=== PATIENT | male | born 2005 | race Caucasian/White ===

== ENCOUNTER 2024-10-03 14:22 | Emergency (ER) | payer OTHER, SELFPAY ==
[2024-10-03 15:12] VITALS: BP 138/87; PULSE 91; RESP 17; TEMP 36.5; O2SAT 99; BMI 24.7
--- NOTE | 2024-10-03 17:02 | ED_ITS ---
HPI - Psych General Chief Complaint: Psychiatric Symptoms Stated Complaint: mental health struggles Time Seen by Provider: 10/03/24 17:02 Source: patient and family Mode of arrival: Ambulatory History of Present Illness HPI Narrative: Mr. Bonilla is a very pleasant 19-year-old male with a past medical history of depression, anxiety, ADHD who presents to the emergency department with his girlfriend for concerns of worsening depression and hoping to get started back on his medications. Patient was previously on desvenlafaxine 50 mg and hydroxyzine 10 mg as needed however he stopped taking these few months ago because of his ADHD which causes him to struggle remembering to take medications. States that he is currently in college in [place] and missed school this last week because he was feeling extremely depressed and anxious. Brionna villalpando admits that he did have thoughts of wanting to this last week but that he has no current suicidal ideations and has no plan. He has no homicidal ideations. The more school he missed the more depressed he gets. His brother did commit suicide in 2019 and the date is approaching which often worsens his depression. He is here with his girlfriend who he states is a big support for him. His parents also live in [place]. Related Data Previous Rx's Medication Instructions Recorded desvenlafaxine succinate 50 mg 50 mg PO DAILY #30 tabs 07/14/23 tablet,extended release 24 hr hydroxyzine HCl 10 mg tablet 10 mg PO BID PRN anxiety #60 tabs 07/14/23 ketoconazole 2 % shampoo 1 applic topical 2XW #120 mL 07/14/23 desvenlafaxine succinate 50 mg 50 mg PO DAILY #30 tabs 10/03/24 tablet,extended release 24 hr hydroxyzine HCl 10 mg tablet 10 mg PO TID PRN anxiety #30 tabs 10/03/24 Allergies Allergy/AdvReac Type Severity Reaction Status Date / Time No Known Drug Allergies Allergy Verified 10/03/24 15:12 Review of Systems Review of Systems ROS Unobtainable: All systems reviewed & are unremarkable except as noted in HPI and below Patient History Social History Smoking Status: Never smoker alcohol intake: current (Binge 2x month) substance use type: marijuana (Daily) Smoking Status: Never smoker Exam Narrative Exam Narrative: GENERAL: 19 year old patient appears stated age. Well-developed patient, in no acute distress. HEAD: Atraumatic. Normocephalic. EYES: Extraocular motions intact. No scleral icterus. No injection or drainage. NECK: Trachea midline. Cervical ROM intact. CARDIOVASCULAR: Regular rate and rhythm. RESPIRATORY: ?Nonlabored respirations. ?Speaking in clear, full sentences. ?Clear to auscultation. Breath sounds equal bilaterally. No wheezes, rales, or rhonchi. ? NEURO: AOx3. ?Clear speech. ?Moves all 4 extremities appropriately. Good insight and judgment. No SI or HI. SKIN: No rash or erythema of visible areas Initial Vital Signs Initial Vital Signs: Vital Signs Temperature 97.7 F 10/03/24 15:12 Pulse Rate 91 H 10/03/24 15:12 Respiratory Rate 17 10/03/24 15:12 Blood Pressure 138/87 10/03/24 15:12 Pulse Oximetry 99 10/03/24 15:12 Oxygen Delivery Method Room Air 10/03/24 15:12 Course Orders Ordered: ED Orders 10/03/24 15:27 Consult to OPTIMIZATION ANALYST - Barrel Rifler Broach Stat Vital Signs Vital signs: Vital Signs - 8 hr 10/03/24 15:12 10/03/24 19:10 Temperature 97.7 F 98 F Pulse Rate 91 H 80 Respiratory Rate 17 18 Blood Pressure 138/87 Pulse Oximetry 99 98 Oxygen Delivery Method Room Air Room Air MDM - Psych MDM Narrative Medical decision making narrative: 19-year-old male with a past medical history of depression, anxiety, ADHD who presents to the emergency department with his girlfriend for concerns of worsening depression and hoping to get started back on his medications. Differential diagnosis includes but isn't limited to depression, anxiety, SI, ADHD, medication refill, etc. On exam the patient is in no acute distress, nontoxic appearing, vital signs within normal limits, good insight and judgment, no active SI or HI. Patient has a long history of struggling with mental health but has been off his medication for some time, he attributes this to his uncontrolled ADHD however he has never been formally prescribed medication for his ADHD. He has taken a family member's Adderall in the past and felt very well controlled on this medication. He is hoping to be started on medications today at this ED visit. We did discuss the limitations of the emergency department and that I am unable to follow up with him on long-term medications. Because there is documentation of him being on hydroxyzine and desvenlafaxine in the past, and patient reports these medications worked well for him, I will refill them at this time. I had an extensive discussion with the patient that he very well may benefit from voluntary inpatient psychiatric treatment, however is not interested in this at this time as he is very hopeful to get back to college. I do not believe this patient requires involuntary psychiatric admission, is not currently harm to himself, and has good support system and safety resources. OPTIMIZATION ANALYST met with the patient and he was very happy with the multiple resources she was able to provide him. At this time he states that on Wednesdays and Fridays he would be able to go to doctor's appointments without missing school. Discussed strict ED return precautions with the patient. Both the patient and his partner Gypsy verbalized understanding all of the information. He is agreeable to the plan and stable for discharge home. Discharge Plan Departure Patient Disposition: Home Clinical Impression: Major depression, recurrent Qualifiers: Active/Remission status: currently active Major depression episode severity: unspecified Qualified Code(s): F33.9 - Major depressive disorder, recurrent, unspecified Instructions: DI for Suicidal Ideation-Adult Activity Restrictions/Additional Instructions: Dear Mr. Bonilla. Thank you for coming to the emergency department. Today you were evaluated for worsening symptoms of depression anxiety and ADHD. We have started you back on your prior anxiety and antidepressant medications, however these are medications that require close follow up so it is extremely important that you follow up with your primary care doctor and a psychiatrist for further management. You will need to see a psychiatrist help prescribed medications for ADHD. If you develop any thoughts of harming herself or others, call 911, suicide crisis line, or return to the emergency department immediately. Please return to the emergency department with any concerns. Please follow up with your primary care doctor within the next 2-3 days for ER follow-up. (If you do not have a PCP you can call [phone]. ?to schedule an appointment with an [facility] Primary Care Provider) IF YOU DEVELOP ANY NEW OR WORSENING SYMPTOMS, RETURN TO THE ER! Please read the attached instructions, they highlight more specific treatments and interventions for you at home. Thank you for letting me participate in your care, Winter Cantor PA-C Prescriptions: New desvenlafaxine succinate 50 mg tablet extended release 24 hr 50 mg PO DAILY Qty: 30 1RF hydroxyzine HCl 10 mg tablet 10 mg PO TID PRN (Reason: anxiety) Qty: 30 0RF No Action desvenlafaxine succinate 50 mg tablet extended release 24 hr 50 mg PO DAILY Qty: 30 2RF hydroxyzine HCl 10 mg tablet 10 mg PO BID PRN (Reason: anxiety) Qty: 60 0RF ketoconazole 2 % shampoo 1 applic topical 2XW Qty: 120 2RF Rx Instructions: Apply to scalp for 5 minutes before rinsing Referrals: Beronica Day DO [Primary Care Provider] - Stand Alone Forms: Patient Portal/API/Survey, School Release Note
--- NOTE | 2024-10-03 18:26 | CM.SWNOTE ---
ED UNIT AIDE Assessment Note: ED UNIT AIDE deployed ALLEGRA-7 and PHQ-9 and patient scored a 15 and 25, respectively, indicating severe anxiety and depression. UNIT AIDE - Cutter Inspector Assessment UNIT AIDE - Cutter Inspector Assessment Start: 10/03/24 17:42 Freq: Status: Active Protocol: Document 10/03/24 17:42 MW (Rec: 10/03/24 18:26 MW [id number]) UNIT AIDE/Cutter Inspector Assessment Time Spent with Patient Start date 10/03/24 Visit Start Time 16:30 End date 10/03/24 Visit End Time 15:00 Total time Care Management spent on 30 minutes patient visit-in minutes Mental Health Screening Include Onset, Duration, Intensity Presenting Problem Patient presented to the ED with his partner with concerns of his mental health and requesting a medication refill. Patient was previously prescribed desvenlafaxine and hydroxyzine by his PCP in 2022, he has not been medicated since. Patient recognzies he needs assistance with this; previous MH dx of anxiety, depression and ADHD. Precipitating Event(s) Patient states he has been frozen for the past week, executive dysfunction and having a hard time fulfilling ADLs. Patient explains his family encouraged him to get help. Patient stopped seeing his MH therapist in May 2023 due to school schedule. Patient Strengths Patient is supported by his partner, Gypsy, who is at bedside with him today. Current Behavioral Health Provider(s) Previous MH provider is Estefanía Webb, Provider, Ph. # [facility], RESIDENTIAL [facility] in [place]. ph# [phone]. Psych. Hx Mental Health and Chemical Previous mental health dx of Dependency anxiety and depression. States he was diagnosed with ADHD in the past but has not been formally prescribed medication for this. Family Hx of Behavioral Abuse Patient has an older brother who completed suicide by firearm. Psychiatric Hospitalizations (date(s)/ None reported. location) Psychosocial information & Support Patient is a 19yo male, Systems resident of [place] with his parents and two siblings. Patient is currently dorming at the [employer] in [place]. School/Work Patient is a Freshman at the [employer]. Legal Concerns Legal Matters - Outstanding Issues None reported. Mental Status Orientation (Person/Place/Time) AOx3 Stated Mood drained Affect (Congruent with Mood?) Congruent with mood, calm Thought Content - Specify/Describe None reported, none identified Obsessions, Delusions, Hallucinations during assessment. Thought Processes (Vdqwfuk-Wnqyraqp-Xcdr Goal directed, logical Cqxvaxwr-Pplsklzf-Rnrhfszazx- Ejhlwcajkgbbfe-Vabnfqs-Hlunxokkyter- Thought Blocking) Speech (Mwxfhy-Scda-Xpplnti-Rapid-Soft- Normal, soft Loud-Pressured) Motor (Raohae-Ccwcacslu-Izur-Other) Normal Insight (Qang-Kzsw-Oszl/Limited) Good Judgement (Uubj-Hutb-Ndvf/Limited) Good Impulse Control (Adequate-Impaired) Adequate Memory (Xdmpwcexz-Ezqqbu-Ixxhnb, Intact Impaired-Intact) Concentration (Intact-Impaired) Intact Attention (Intact-Impaired) Intact Behavior (Appropriate-Inappropriate) Appropriate Additional Comment Patient is calm, cooperative and communicative during assessment. Risk Assessment Suicidal Ideation (Plan) No Homicidal Ideation (Plan) No Comment Patient states he has some thoughts that attribute to his depression but does not have a plan. Patient is able to clearly consent for safety with this UNIT AIDE and there is a safety plan in place. Intervention Intervention Reviewed chart and discussed with ED Provider pt's medical status and discharge needs. ED UNIT AIDE meets with patient and patient's partner, whom patient consents to be part of assessment. Patient endorses feeling frozen this past week where he has had to skip classes and has been isolated in his room. Patient is able to express that he recognizes this isn't normal behavior and is now seeking help. ED UNIT AIDE and patient discuss goals of care. Patient explains they are agreeable to an outpatient plan of [facility], follow up with PCP and OT referral. UNIT AIDE placed referral with [facility], OT via Care Crisis Line and notified Transitional Care Management Team for PCP follow up. UNIT AIDE provided contact information for all referrals sent to patient and provided education. At this time, it is the opinion of this UNIT AIDE that patient would benefit from inpatient psychiatric hospitalization for medication management. Yet, Patient is able to contract for safety and is hopeful to return to school as soon as possible so is hoping to do least restrictive outpatient plan. UNIT AIDE informs ED provider, MG Max, who indicates agreement and will do a bridge prescription for patient until he is able to be seen by psychiatric prescriber or PCP. UNIT AIDE informs HANNA Andrews. Plan RA Plan Patient to discharge home with family, follow up with [facility], PCP, [facility] team if necessary. Magalys Albright RESIDENTIAL APPRAISER
[2024-10-03 19:10] VITALS: PULSE 80; RESP 18; TEMP 36.6; O2SAT 98
--- NOTE | 2024-10-03 19:10 | PC.NURSE ---
Patient given 2 school release notes: 1 note for excusing absences: Mr. Bonilla was suffering rom mental health crises causing his absence may return to school 10/05/24 [facility] PAC 1 note for extended testing time: Please allow extended testing time due to ADHD. [facility] copies of both notes sent to medical records
== END 2024-10-03 19:10 | disposition home or self-care (01) ==
PROVIDERS: Emergency Provider Physician Assistant; PCP Family Medicine
DX: F33.9 Major depressive disorder, recurrent, unspecified (principal)
CPT/HCPCS: 99283